=== PATIENT | male | born 1970 ===

== ENCOUNTER 2018-09-24 09:38 | Inpatient (IN) | payer OTHER ==
[2018-09-24 09:53] VITALS: BMI 26.6
[2018-09-24 10:43] LABS: BASO % 0.1 % (0.0-2.0); HEMOGLOBIN 15.5 g/dL (12.0-18.0); LYMPH # 1.2 K/uL (1.0-4.3); LYMPH % 8.6 % (20.0-40.0); MEAN CELL VOLUME 104.5 fl (80.0-94.0); MEAN CORPUSCULAR HEMOGLOBIN 35.1 pg (27.0-31.0); MEAN CORPUSCULAR HGB CONC 33.6 g/dL (33.0-37.0); MEAN PLATELET VOLUME 6.8 fl (7.2-11.7); MONO # 1.2 K/uL (0.0-0.8); MONO % 8.3 % (0.0-10.0); NEUT # 12.1 K/uL (1.8-7.0); PLATELET COUNT 190 K/uL (130-400); RED CELL DISTRIBUTION WIDTH 13.1 % (11.5-14.5); WHITE BLOOD COUNT 14.5 K/uL (4.8-10.8)
[2018-09-24 10:50] LABS: BLOOD UREA NITROGEN 21 mg/dl (9-20); CALCIUM 9.4 mg/dL (8.4-10.2); GFR NON-AFRICAN AMERICAN > 60
--- NOTE | 2018-09-24 11:55 | ED PDOC ---
HPI: Male Pain Time Seen by Provider: 09/24/18 10:15 Chief Complaint (Nursing): Male Genitourinary History Per: Patient History/Exam Limitations: no limitations Onset/Duration Of Symptoms: Hrs Current Symptoms Are (Timing): Still Present Severity: Severe Pain Scale Rating Of: 9 Quality Of Discomfort: Sharp, Burning Associated Symptoms: Nausea. denies: Fever, Chills Alleviating Factors: None Additional Complaint(s): 48 yo M with no PMHx presents with sudden on set left sided testicular pain. Pt states the pain came on suddenly this morning. Pt denies previous pain with urination, trauma, fever, vomiting, or other symptoms. PT denies having had this in the past. Pt described the pain as feeling like his scrotum is going to explode. PMD: Past Medical History Vital Signs: Last Vital Signs Temp 97.9 F 09/24/18 09:52 Pulse 98 H 09/24/18 09:52 Resp 16 09/24/18 09:52 BP 146/91 H 09/24/18 09:52 Pulse Ox 98 09/24/18 10:00 - Medical History PMH: No Chronic Diseases - Surgical History Surgical History: No Surg Hx - Family History Family History: States: Unknown Family Hx - Home Medications Home Medications: Ambulatory Orders Medication Instructions Recorded RX: Cholecalciferol [Vitamin D 1 tab PO DAILY 09/24/18 1000 IU] RX: Emtricitabine/Tenofov Alafenam 1 tab PO QPM 09/24/18 [Descovy 200-25 mg Tablet] RX: Ezetimibe [Zetia] 10 mg PO DAILY 09/24/18 RX: Milk Thistle Seed Extract 1 cap PO DAILY 09/24/18 [Milk Thistle] RX: Nevirapine [Nevirapine ER] 400 mg PO QPM 09/24/18 RX: Simvastatin [Zocor] 20 mg PO DAILY 09/24/18 Ciprofloxacin HCl [Cipro] 500 mg PO BID #20 tab 09/28/18 Ibuprofen [Motrin] 600 mg PO Q6 PRN #30 tab 09/28/18 - Allergies Allergies/Adverse Reactions: Allergies Allergy/AdvReac Type Severity Reaction Status Date / Time No Known Allergies Allergy Verified 09/24/18 10:00 Review of Systems Constitutional: Negative for: Fever, Chills Cardiovascular: Negative for: Chest Pain, Palpitations Respiratory: Negative for: Cough, Shortness of Breath Gastrointestinal: Positive for: Nausea. Negative for: Vomiting, Abdominal Pain, Diarrhea Genitourinary Male: Positive for: Scrotal Pain (left testicular pain). Negative for: Dysuria, Incontinence, Hematuria Skin: Negative for: Rash Neurological: Negative for: Weakness Psych: Negative for: Anxiety, Depression Physical Exam - Physical Exam Appears: Positive for: Uncomfortable (writhing in pain and screaming) Head Exam: Positive for: ATRAUMATIC, NORMAL INSPECTION Skin: Positive for: Normal Color, Warm, Dry Neck: Positive for: Normal Cardiovascular/Chest: Positive for: Regular Rate, Rhythm Respiratory: Positive for: Normal Breath Sounds. Negative for: Rales, Wheezing Gastrointestinal/Abdominal: Positive for: Normal Exam, Soft. Negative for: Tenderness Male Genital Exam: Positive for: epididymal tenderness (left sided), erythema, scrotum tenderness (L) (left scrotal swelling and tenderness on any palpation, lifting the testical. BL scrotal erythema.), other (Performed with RN Marco A mckenzie present.). Negative for: urethral discharge Extremity: Positive for: Normal ROM Neurologic/Psych: Positive for: Alert, market development analyst II-XII, Oriented - Laboratory Results Result Diagrams: 09/27/18 05:25 09/27/18 05:25 - ECG O2 Sat by Pulse Oximetry: 98 Medical Decision Making Medical Decision Makin yo M with scrotal swelling and pain, worse on the left side. Physical exam limited due to severe pain. Pain control. Scrotal US. Labs, UA, Uculture. -reassess pt 14:28 -After further discussion with patient, he states he's had HIV for x10 years. He [place] with Dr. [place] in the city. He takes medications daily, his CD4 count is in the 1400s with a viral load fluctuating between undetectable and approximately 60. -Patient is still unable to urinate, will place mcgraw catheter, IV consult and patient will be admitted. Disposition - Clinical Impression Clinical Impression: Urinary tract infection - Disposition Disposition Time: 14:28 Condition: FAIR
[2018-09-24 12:06] LABS: LYMPHOCYTE 11 % (20-50); MONOCYTE 10 % (0-10); NEUTROPHIL 76 % (42-75); PLATELET ESTIMATE NORMAL (NORMAL); REACTIVE LYMPHOCYTES 3 % (0-0); TOTAL CELLS COUNTED 100
--- NOTE | 2018-09-24 12:14 | US ---
Date of service: 09/24/2018 HISTORY: left testicular swelling and pain TECHNIQUE: Realtime sonography through the scrotum with color and doppler flow. COMPARISON: None Available. FINDINGS: RIGHT TESTICLE: Measures 4.5 x 3.3 x 2.2 cm. Normal echotexture and flow. Diffuse increased blood flow in the right testicle and right epididymis RIGHT EPIDIDYMIS: Epididymal head measures 1.9 x 1.3 x 1.2 cm. Grossly unremarkable appearance with normal flow. Diffuse increased blood flow in the right epididymis LEFT TESTICLE: Measures 4.5 x 3.4 x 3 cm. Normal echotexture and flow. LEFT EPIDIDYMIS: Epididymal head measures 2.5 x 1.5 x 1.7 cm. Grossly unremarkable appearance with normal flow. HYDROCELE: Small bilateral hydroceles seen for prominent on the left. VARICOCELE: None. OTHER FINDINGS: None. IMPRESSION: Bilateral enlargement of the testicles and epididymis more prominent on the left associated with diffuse hyperemia suggestive of orchitis epididymitis. Small bilateral hydroceles more prominent on the left.
[2018-09-24] MEDS ORDERED: Sodium Chloride 0.9% 1,000 ML IV STA (12:32)
[2018-09-24 12:39] LABS: URINE BACTERIA RARE (<OCC); URINE BILIRUBIN NEGATIVE (NEGATIVE); URINE BLOOD NEGATIVE (NEGATIVE); URINE CLARITY SLIGHTY-CLOUDY (Clear); URINE COLOR YELLOW (YELLOW); URINE GLUCOSE (UA) NEG (Normal); URINE LEUKOCYTE ESTERASE NEG Leu/uL (Negative); URINE PROTEIN NEGATIVE (NEGATIVE); URINE UROBILINOGEN 0.2-1.0 mg/dL (0.2-1.0)
[2018-09-24] MEDS ORDERED: cefTRIAXone 2 GM in Sodium Chloride 0.9% 100 ML IVPB STA (13:19)
[2018-09-24 14:16] LABS: VENOUS BLOOD GAS BASE EXCESS 3.3 mmol/L (0.0-2.0); VENOUS BLOOD GAS PCO2 30 mmHg (40-60); VENOUS BLOOD GAS PO2 34 mm/Hg (30-55); VENOUS BLOOD PH 7.53 (7.32-7.43)
[2018-09-24] MEDS: Morphine 4 MG/ML VIAL IVP STA ×3 (15:30→16:11)
--- NOTE | 2018-09-24 18:45 | CP.PCM.CON ---
History of Present Illness - History of Present Illness History of Present Illness: 48 yo M with no PMHx presents with sudden on set left sided testicular pain. Pt states the pain came on suddenly this morning. Pt denies previous pain with urination, trauma, fever, vomiting, or other symptoms. PT denies having had this in the past. Pt described the pain as feeling like his scrotum is going to explode. PMH HIV on Odefsey/Viramune Past Patient History - Past Social History Smoking Status: Never Smoked - CARDIAC Hx Cardiac Disorders: Yes (hld) Hx Hypercholesterolemia: Yes - PULMONARY Hx Respiratory Disorders: No - NEUROLOGICAL Hx Neurological Disorder: No - HEENT Hx HEENT Problems: No - RENAL Hx Chronic Kidney Disease: No - ENDOCRINE/METABOLIC Hx Endocrine Disorders: No - HEMATOLOGICAL/ONCOLOGICAL Hx Blood Disorders: Yes (hiv) Hx AIDS: No Hx Human Immunodeficiency Virus (HIV): Yes - INTEGUMENTARY Hx Dermatological Problems: No - MUSCULOSKELETAL/RHEUMATOLOGICAL Hx Musculoskeletal Disorders: No Hx Falls: No - GENITOURINARY/GYNECOLOGICAL Hx Genitourinary Disorders: Yes Hx Sexually Transmitted Disorders: Yes Other/Comment: Gonorrhea. Chlamydia. Syphilis - PSYCHIATRIC Hx Psychophysiologic Disorder: No Hx Substance Use: No - SURGICAL HISTORY Hx Surgeries: No Other/Comment: [place] tooth removal - ANESTHESIA Hx Anesthesia: Yes Hx Anesthesia Reactions: No Meds Allergies/Adverse Reactions: Allergies Allergy/AdvReac Type Severity Reaction Status Date / Time No Known Allergies Allergy Verified 09/24/18 10:00 - Medications Medications: Current Medications Acetaminophen (Tylenol 325mg Tab) 650 mg PO STAT PRN PRN Reason: Fever >100.4 F Last Admin: 09/24/18 15:47 Dose: 650 mg Atorvastatin Calcium (Lipitor) 10 mg PO HS [facility] Cholecalciferol (Vitamin D) 1,000 intlu PO DAILY [facility] Ezetimibe (Zetia) 10 mg PO DAILY [facility] Emtricitabine/Tenofovir (Truvada 200 Mg-300 Mg) 1 tab PO DAILY [facility]; Protocol Enoxaparin Sodium (Lovenox) 40 mg SC DAILY [facility]; Protocol Home Med (Emtricitabine/Tenofov Alafenam [Descovy 200-25 Mg Tablet]) 1 tab PO QPM [facility] Home Med (Milk Thistle Seed Extract [Milk Thistle]) 1 cap PO DAILY [facility] Home Med (Nevirapine [Nevirapine Er]) 400 mg PO QPM [facility] Levofloxacin/Dextrose (Levaquin 500mg) 500 mg in 100 mls @ 100 mls/hr IVPB DAILY [facility]; Protocol Ceftriaxone Sodium 2 gm/ (Sodium Chloride) 100 mls @ 100 mls/hr IVPB DAILY [facility]; Protocol Ketorolac Tromethamine (Toradol) 30 mg IVP Q6 PRN PRN Reason: Pain, moderate (4-7) Morphine Sulfate (Morphine) 2 mg IVP Q6 PRN PRN Reason: Pain, moderate (4-7) Morphine Sulfate (Morphine) 4 mg IVP Q6 PRN PRN Reason: Pain, severe (8-10) Nevirapine (Viramune) 200 mg PO BID [facility]; Protocol Results - Vital Signs Recent Vital Signs: Last Vital Signs Temp 99.9 F H 09/24/18 16:47 Pulse 101 H 09/24/18 16:37 Resp 17 09/24/18 16:51 BP 140/69 09/24/18 16:37 Pulse Ox 99 09/24/18 16:37 - Labs Result Diagrams: 09/24/18 10:30 09/24/18 10:30 Labs: Laboratory Results - last 24 hr 09/24/18 09/24/18 09/24/18 10:30 10:30 12:30 WBC 14.5 H RBC 4.40 Hgb 15.5 Hct 46.0 MCV 104.5 H MCH 35.1 H MCHC 33.6 RDW 13.1 Plt Count 190 MPV 6.8 L Neut % (Auto) 83.0 H Lymph % (Auto) 8.6 L Sac % (Auto) 8.3 Eos % (Auto) 0.0 Baso % (Auto) 0.1 Neut # (Auto) 12.1 H Lymph # (Auto) 1.2 Sac # (Auto) 1.2 H Eos # (Auto) 0.0 Baso # (Auto) 0.0 Neutrophils % (Manual) 76 H Lymphocytes % (Manual) 11 L Reactive Lymphs % 3 H Monocytes % (Manual) 10 Platelet Estimate Normal Macrocytosis (manual) Moderate pO2 VBG pH VBG pCO2 VBG HCO3 VBG Total CO2 VBG O2 Sat (Calc) VBG Base Excess VBG Potassium Glucose Lactate FiO2 Sodium 134 Potassium 4.2 Chloride 101 Carbon Dioxide 24 Anion Gap 13 BUN 21 H Creatinine 0.9 Est GFR ( Amer) > 60 Est GFR (Non-Af Amer) > 60 Random Glucose 116 H Calcium 9.4 Venous Blood Potassium Urine Color Yellow Urine Clarity Slighty-cloudy Urine pH 8.0 Ur Specific [place] 1.019 Urine Protein Negative Urine Glucose (UA) Neg Urine Ketones Negative Urine Blood Negative Urine Nitrate Negative Urine Bilirubin Negative Urine Urobilinogen 0.2-1.0 Ur Leukocyte Esterase Neg Urine RBC (Auto) 1 Urine Microscopic WBC 1 Urine Bacteria Rare 09/24/18 13:49 WBC RBC Hgb Hct MCV MCH MCHC RDW Plt Count MPV Neut % (Auto) Lymph % (Auto) Sac % (Auto) Eos % (Auto) Baso % (Auto) Neut # (Auto) Lymph # (Auto) Sac # (Auto) Eos # (Auto) Baso # (Auto) Neutrophils % (Manual) Lymphocytes % (Manual) Reactive Lymphs % Monocytes % (Manual) Platelet Estimate Macrocytosis (manual) pO2 34 VBG pH 7.53 H VBG pCO2 30 L VBG HCO3 26.6 VBG Total CO2 26.0 VBG O2 Sat (Calc) 71.7 H VBG Base Excess 3.3 H VBG Potassium 3.8 Glucose 114 H Lactate 1.9 FiO2 21.0 Sodium 132.0 Potassium Chloride 99.0 Carbon Dioxide Anion Gap BUN Creatinine Est GFR ( Amer) Est GFR (Non-Af Amer) Random Glucose Calcium Venous Blood Potassium 3.8 Urine Color Urine Clarity Urine pH Ur Specific [place] Urine Protein Urine Glucose (UA) Urine Ketones Urine Blood Urine Nitrate Urine Bilirubin Urine Urobilinogen Ur Leukocyte Esterase Urine RBC (Auto) Urine Microscopic WBC Urine Bacteria
--- NOTE | 2018-09-24 18:49 | CP.PCM.HP ---
History of Present Illness - History of Present Illness History of Present Illness: 48 yo M with PMHx of HIV, chronic Hep C? and HLD presents to the ED c/o pain of sudden onset in left testicle. Pt states that the pain started at night while he was sleeping, radiated to his back, constant, worsening over time, no nidhi viating factors. He went to bathroom and noted some difficulty to urinate. In the morning he noted his scrotum swollen, red and warm. He reports similar episode around 10 years ago. He denies burning or dysuria, frequency, trauma, penile discharge, fever, nausea, vomiting, abdominal pain or change in BM. PMH: PMH: HIV since 12 years ago, Hep C, HLD Meds: as bellow NKDA PSH: denies FMH: denies SH: denies etoh, tobacco or ilicit drugs Lives with male partner. Present on Admission - Present on Admission Any Indicators Present on Admission: No Review of Systems - Review of Systems All systems: reviewed and no additional remarkable complaints except (HPI) Past Patient History - Past Social History Smoking Status: Never Smoked - CARDIAC Hx Cardiac Disorders: Yes (hld) Hx Hypercholesterolemia: Yes - PULMONARY Hx Respiratory Disorders: No - NEUROLOGICAL Hx Neurological Disorder: No - HEENT Hx HEENT Problems: No - RENAL Hx Chronic Kidney Disease: No - ENDOCRINE/METABOLIC Hx Endocrine Disorders: No - HEMATOLOGICAL/ONCOLOGICAL Hx Blood Disorders: Yes (hiv) Hx AIDS: No Hx Human Immunodeficiency Virus (HIV): Yes - INTEGUMENTARY Hx Dermatological Problems: No - MUSCULOSKELETAL/RHEUMATOLOGICAL Hx Musculoskeletal Disorders: No Hx Falls: No - GENITOURINARY/GYNECOLOGICAL Hx Genitourinary Disorders: Yes Hx Sexually Transmitted Disorders: Yes Other/Comment: Gonorrhea. Chlamydia. Syphilis - PSYCHIATRIC Hx Psychophysiologic Disorder: No Hx Substance Use: No - SURGICAL HISTORY Hx Surgeries: No Other/Comment: [place] tooth removal - ANESTHESIA Hx Anesthesia: Yes Hx Anesthesia Reactions: No Meds Allergies/Adverse Reactions: Allergies Allergy/AdvReac Type Severity Reaction Status Date / Time No Known Allergies Allergy Verified 09/24/18 10:00 Physical Exam - Constitutional Appears: In Acute Distress (due to pain) - Head Exam Head Exam: NORMAL INSPECTION - Eye Exam Eye Exam: EOMI - Respiratory Exam Respiratory Exam: Clear to Auscultation Bilateral, NORMAL BREATHING PATTERN - Cardiovascular Exam Cardiovascular Exam: REGULAR RHYTHM, +S1, +S2. absent: Tachycardia - GI/Abdominal Exam GI & Abdominal Exam: Normal Bowel Sounds, Soft. absent: Distended, Tenderness - Exam Exam: Scrotal Swelling (L, erythema), Testicular Tenderness. absent: Uretheral Discharge - Extremities Exam Extremities exam: Negative for: pedal edema - Back Exam Back exam: absent: CVA tenderness (L), CVA tenderness (R) - Neurological Exam Neurological exam: Alert, CN II-XII Intact, Oriented x3 - Skin Skin Exam: Dry, Warm - Additional Findings Additional findings: Patient was found febrile during physical exam, T 101.3 F Results - Vital Signs Recent Vital Signs: Last Vital Signs Temp 99.9 F H 09/24/18 16:47 Pulse 101 H 09/24/18 16:37 Resp 17 09/24/18 16:51 BP 140/69 09/24/18 16:37 Pulse Ox 99 09/24/18 16:37 - Labs Result Diagrams: 09/24/18 10:30 09/24/18 10:30 Labs: Laboratory Results - last 24 hr 09/24/18 09/24/18 09/24/18 10:30 10:30 12:30 WBC 14.5 H RBC 4.40 Hgb 15.5 Hct 46.0 MCV 104.5 H MCH 35.1 H MCHC 33.6 RDW 13.1 Plt Count 190 MPV 6.8 L Neut % (Auto) 83.0 H Lymph % (Auto) 8.6 L [place] % (Auto) 8.3 Eos % (Auto) 0.0 Baso % (Auto) 0.1 Neut # (Auto) 12.1 H Lymph # (Auto) 1.2 [place] # (Auto) 1.2 H Eos # (Auto) 0.0 Baso # (Auto) 0.0 Neutrophils % (Manual) 76 H Lymphocytes % (Manual) 11 L Reactive Lymphs % 3 H Monocytes % (Manual) 10 Platelet Estimate Normal Macrocytosis (manual) Moderate pO2 VBG pH VBG pCO2 VBG HCO3 VBG Total CO2 VBG O2 Sat (Calc) VBG Base Excess VBG Potassium Glucose Lactate FiO2 Sodium 134 Potassium 4.2 Chloride 101 Carbon Dioxide 24 Anion Gap 13 BUN 21 H Creatinine 0.9 Est GFR ( Amer) > 60 Est GFR (Non-Af Amer) > 60 Random Glucose 116 H Calcium 9.4 Venous Blood Potassium Urine Color Yellow Urine Clarity Slighty-cloudy Urine pH 8.0 Ur Specific [place] 1.019 Urine Protein Negative Urine Glucose (UA) Neg Urine Ketones Negative Urine Blood Negative Urine Nitrate Negative Urine Bilirubin Negative Urine Urobilinogen 0.2-1.0 Ur Leukocyte Esterase Neg Urine RBC (Auto) 1 Urine Microscopic WBC 1 Urine Bacteria Rare 09/24/18 13:49 WBC RBC Hgb Hct MCV MCH MCHC RDW Plt Count MPV Neut % (Auto) Lymph % (Auto) [place] % (Auto) Eos % (Auto) Baso % (Auto) Neut # (Auto) Lymph # (Auto) [place] # (Auto) Eos # (Auto) Baso # (Auto) Neutrophils % (Manual) Lymphocytes % (Manual) Reactive Lymphs % Monocytes % (Manual) Platelet Estimate Macrocytosis (manual) pO2 34 VBG pH 7.53 H VBG pCO2 30 L VBG HCO3 26.6 VBG Total CO2 26.0 VBG O2 Sat (Calc) 71.7 H VBG Base Excess 3.3 H VBG Potassium 3.8 Glucose 114 H Lactate 1.9 FiO2 21.0 Sodium 132.0 Potassium Chloride 99.0 Carbon Dioxide Anion Gap BUN Creatinine Est GFR ( Amer) Est GFR (Non-Af Amer) Random Glucose Calcium Venous Blood Potassium 3.8 Urine Color Urine Clarity Urine pH Ur Specific [place] Urine Protein Urine Glucose (UA) Urine Ketones Urine Blood Urine Nitrate Urine Bilirubin Urine Urobilinogen Ur Leukocyte Esterase Urine RBC (Auto) Urine Microscopic WBC Urine Bacteria Assessment & Plan - Assessment and Plan (Free Text) Assessment: 48 yo male patient admitted with epididymitis. Patient has h/o HIV adherent with medications and hepatitis C per patient. Plan: - VSS, febrile - leukocytosis, lactate 1.9 - Testicular US: b/l scrotal swelling and epididymitis more prominent in L, hyperemia suggesting orchitis, b/l hydrocele, no evidence of testicular torsion. - ID consulted - Urology consulted - IV abx - pain management - f/u labs in am - f/u cultures - home meds resumed - rest of plan as ordered Case discussed with Dr Whipple.
[2018-09-24] MEDS ORDERED: Morphine 4 MG/ML VIAL IVP PRN ×2 (21:30)
[2018-09-25 06:06] LABS: BASO % 0.2 % (0.0-2.0); EOS % 0.1 % (0.0-4.0); HEMOGLOBIN 14.5 g/dL (12.0-18.0); LYMPH # 2.3 K/uL (1.0-4.3); MEAN CELL VOLUME 104.6 fl (80.0-94.0); MEAN CORPUSCULAR HEMOGLOBIN 34.6 pg (27.0-31.0); MEAN CORPUSCULAR HGB CONC 33.1 g/dL (33.0-37.0); MEAN PLATELET VOLUME 6.8 fl (7.2-11.7); MONO # 1.4 K/uL (0.0-0.8); MONO % 7.4 % (0.0-10.0); NEUT # 15.7 K/uL (1.8-7.0); NEUT % 80.3 % (50.0-75.0); RBC 4.19 Mil/uL (4.40-5.90); RED CELL DISTRIBUTION WIDTH 13.1 % (11.5-14.5); WHITE BLOOD COUNT 19.5 K/uL (4.8-10.8)
[2018-09-25 06:19] LABS: ALB/GLOB RATIO 1.1 (1.0-2.1); ALBUMIN 3.8 g/dL (3.5-5.0); ALT/SGPT 41 U/L (21-72); AST/SGOT 28 U/L (17-59); BLOOD UREA NITROGEN 21 mg/dl (9-20); GFR NON-AFRICAN AMERICAN > 60
[2018-09-25] MEDS: levoFLOXacin 500 mg in D5W 500 MG/100 ML BAG IVPB SCH (08:51)
[2018-09-25] MEDS: Enoxaparin 40 mg Syringe SC SCH (08:52)
[2018-09-25] MEDS: Cholecalciferol 1,000 INTLU TAB PO SCH ×2 (08:55→09:40)
[2018-09-25] MEDS ORDERED: MILK THISTLE SEED EXTRACT PO SCH (09:00)
[2018-09-25] MEDS ORDERED: cefTRIAXone 1,000 MG in PED IV SYRINGE 1 SYR IVPB SCH (09:00)
[2018-09-25] MEDS ORDERED: cefTRIAXone 2 GM in Sodium Chloride 0.9% 100 ML IVPB SCH (09:00)
[2018-09-25] MEDS ORDERED: Emtricitabine-Tenofovir 200 mg-300 mg Tab PO SCH (09:00)
--- NOTE | 2018-09-25 13:26 | CP.PCM.PN ---
Subjective - Date & Time of Evaluation Date of Evaluation: 09/25/18 Time of Evaluation: 09:00 - Subjective Subjective: still febrile with high WBC cultures neg thus far Objective - Vital Signs/Intake and Output Vital Signs (last 24 hours): Temp Pulse Resp BP Pulse Ox 98.1 F 95 H 20 105/61 95 09/25/18 09:00 09/25/18 07:58 09/25/18 07:58 09/25/18 07:58 09/25/18 07:58 - Medications Medications: Current Medications Acetaminophen (Tylenol 325mg Tab) 650 mg PO STAT PRN PRN Reason: Fever >100.4 F Last Admin: 09/24/18 15:47 Dose: 650 mg Atorvastatin Calcium (Lipitor) 10 mg PO HS [facility] Last Admin: 09/24/18 21:35 Dose: 10 mg Cholecalciferol (Vitamin D) 1,000 intlu PO DAILY [facility] Last Admin: 09/25/18 09:40 Dose: Not Given Ezetimibe (Zetia) 10 mg PO DAILY [facility] Last Admin: 09/25/18 09:30 Dose: Not Given Emtricitabine/Tenofovir (Truvada 200 Mg-300 Mg) 1 tab PO DAILY [facility]; Protocol Last Admin: 09/25/18 09:39 Dose: Not Given Enoxaparin Sodium (Lovenox) 40 mg SC DAILY [facility]; Protocol Last Admin: 09/25/18 08:52 Dose: 40 mg Home Med (Emtricitabine/Tenofov Alafenam [Descovy 200-25 Mg Tablet]) 1 tab PO QPM [facility] Home Med (Milk Thistle Seed Extract [Milk Thistle]) 1 cap PO DAILY [facility] Home Med (Nevirapine [Nevirapine Er]) 400 mg PO QPM [facility] Levofloxacin/Dextrose (Levaquin 500mg) 500 mg in 100 mls @ 100 mls/hr IVPB DAILY [facility]; Protocol Last Admin: 09/25/18 08:51 Dose: 100 mls/hr [place] 1 gm/ Sodium (Chloride) 100 mls @ 100 mls/hr IVPB Q8 [facility]; Protocol Ketorolac Tromethamine (Toradol) 30 mg IVP Q6 PRN PRN Reason: Pain, moderate (4-7) Morphine Sulfate (Morphine) 2 mg IVP Q6 PRN PRN Reason: Pain, moderate (4-7) Last Admin: 09/24/18 21:34 Dose: 2 mg Morphine Sulfate (Morphine) 4 mg IVP Q6 PRN PRN Reason: Pain, severe (8-10) Nevirapine (Viramune) 200 mg PO BID [facility]; Protocol Last Admin: 09/25/18 09:40 Dose: Not Given - Labs Labs: 09/25/18 05:45 09/25/18 05:45 - Constitutional Appears: Non-toxic, Chronically Ill - Head Exam Head Exam: NORMOCEPHALIC - Eye Exam Eye Exam: absent: Scleral icterus - ENT Exam ENT Exam: Mucous Membranes Dry - Neck Exam Neck Exam: absent: Lymphadenopathy - Respiratory Exam Respiratory Exam: Decreased Breath Sounds - Cardiovascular Exam Cardiovascular Exam: REGULAR RHYTHM - GI/Abdominal Exam GI & Abdominal Exam: Distended, Soft - Rectal Exam Rectal Exam: Deferred - Exam Exam: Scrotal Swelling - Back Exam Back Exam: absent: CVA tenderness (L), CVA tenderness (R) - Neurological Exam Neurological Exam: Alert, Awake, CN II-XII Intact, Oriented x3 - Psychiatric Exam Psychiatric exam: Depressed - Skin Skin Exam: Dry Assessment and Plan (1) Acute epididymitis Status: Acute (2) Orchitis and epididymitis Status: Acute (3) HIV (human immunodeficiency virus infection) Status: Acute - Assessment and Plan (Free Text) Assessment: will add Merrem consider eval
[2018-09-25 13:34] LABS: HEPATITIS B SURFACE AG Negative (NEGATIVE)
[2018-09-25 13:41] LABS: HEPATITIS A IGM NEGATIVE (NEGATIVE); HEPATITIS B CORE AB NEGATIVE (NEGATIVE)
[2018-09-25 15:00] LABS: HEPATITIS C ANTIBODY REACTIVE (NEGATIVE)
[2018-09-25] MEDS: Meropenem 1 GM in Sodium Chloride 0.9% 100 ML IVPB SCH (16:43)
[2018-09-25] MEDS: Patient's Own Med (Emtricitabine/Tenofov Alafenam [Descovy 200-25 Mg Tablet] 1 TAB) PO SCH (17:58)
[2018-09-25] MEDS: NEVIRAPINE 400 MG PO SCH (17:59)
[2018-09-26] MEDS: Meropenem 1 GM in Sodium Chloride 0.9% 100 ML IVPB SCH ×3 (00:12→17:48)
[2018-09-26] MEDS: levoFLOXacin 500 mg in D5W 500 MG/100 ML BAG IVPB SCH (08:33)
[2018-09-26] MEDS: Cholecalciferol 1,000 INTLU TAB PO SCH ×2 (08:34→08:44)
[2018-09-26] MEDS: Enoxaparin 40 mg Syringe SC SCH (08:34)
[2018-09-26 11:49] LABS: HEMOGLOBIN 13.8 g/dL (12.0-18.0); MEAN CELL VOLUME 105.5 fl (80.0-94.0); MEAN CORPUSCULAR HEMOGLOBIN 36.9 pg (27.0-31.0); RBC 3.74 Mil/uL (4.40-5.90); RED CELL DISTRIBUTION WIDTH 13.4 % (11.5-14.5); WHITE BLOOD COUNT 12.2 K/uL (4.8-10.8)
[2018-09-26 12:20] LABS: ALBUMIN 3.5 g/dL (3.5-5.0); ALT/SGPT 38 U/L (21-72); AST/SGOT 20 U/L (17-59); BLOOD UREA NITROGEN 17 mg/dl (9-20); CALCIUM 8.6 mg/dL (8.4-10.2); GFR NON-AFRICAN AMERICAN > 60
[2018-09-26 18:05] LABS: % CD4 (T HELPER CELL) 23 Percent (30-61); % CD8 (SUPPRESSOR T CELL) 44 Percent (12-42); ABSOLUTE CD4 CELLS 647 Cells/mcL (490-1740); ABSOLUTE CD8 CELLS 1222 Cells/mcL (180-1170); ABSOLUTE LYMPHOCYTES 2782 Cells/mcL (850-3900); HELPER/SUPPRESSOR RATIO 0.53 Ratio (0.86-5.00)
[2018-09-26] MEDS: Patient's Own Med (Emtricitabine/Tenofov Alafenam [Descovy 200-25 Mg Tablet] 1 TAB) PO SCH (18:22)
[2018-09-26] MEDS: NEVIRAPINE 400 MG PO SCH (18:23)
[2018-09-26] MEDS: Docusate-Senna 50 mg-8.6 mg Tab PO SCH (21:23)
[2018-09-27] MEDS: Meropenem 1 GM in Sodium Chloride 0.9% 100 ML IVPB SCH ×2 (00:03→09:00)
[2018-09-27 07:14] LABS: MEAN CELL VOLUME 104.2 fl (80.0-94.0); MEAN CORPUSCULAR HEMOGLOBIN 35.4 pg (27.0-31.0); RBC 3.97 Mil/uL (4.40-5.90); RED CELL DISTRIBUTION WIDTH 13.1 % (11.5-14.5); WHITE BLOOD COUNT 9.4 K/uL (4.8-10.8)
[2018-09-27 07:36] LABS: ALBUMIN 3.6 g/dL (3.5-5.0); ALT/SGPT 40 U/L (21-72); AST/SGOT 26 U/L (17-59); BLOOD UREA NITROGEN 16 mg/dl (9-20); CALCIUM 8.6 mg/dL (8.4-10.2); GFR NON-AFRICAN AMERICAN > 60
[2018-09-27 08:13] VITALS: RESP 20
[2018-09-27] MEDS: levoFLOXacin 500 mg in D5W 500 MG/100 ML BAG IVPB SCH (08:59)
[2018-09-27] MEDS: Cholecalciferol 1,000 INTLU TAB PO SCH (09:01)
[2018-09-27] MEDS: Enoxaparin 40 mg Syringe SC SCH (09:13)
--- NOTE | 2018-09-27 13:47 | CP.PCM.PN ---
Subjective - Date & Time of Evaluation Date of Evaluation: 09/27/18 Time of Evaluation: 09:00 - Subjective Subjective: less pain and swelling no fever CD4 647 IV antibiotics renewed await eval Objective - Vital Signs/Intake and Output Vital Signs (last 24 hours): Temp Pulse Resp BP Pulse Ox 98.1 F 78 20 111/72 98 09/27/18 08:12 09/27/18 08:12 09/27/18 08:12 09/27/18 08:12 09/27/18 08:12 - Medications Medications: Current Medications Acetaminophen (Tylenol 325mg Tab) 650 mg PO STAT PRN PRN Reason: Fever >100.4 F Last Admin: 09/25/18 16:44 Dose: 650 mg Atorvastatin Calcium (Lipitor) 10 mg PO HS [facility] Last Admin: 09/26/18 21:23 Dose: Not Given Cholecalciferol (Vitamin D) 1,000 intlu PO DAILY [facility] Last Admin: 09/27/18 09:01 Dose: Not Given Diphenhydramine HCl (Benadryl) 50 mg PO HS PRN PRN Reason: Sleep Last Admin: 09/26/18 22:49 Dose: 50 mg Docusate Sodium (Colace) 100 mg PO BID [facility] Last Admin: 09/27/18 08:59 Dose: Not Given Ezetimibe (Zetia) 10 mg PO DAILY [facility] Last Admin: 09/27/18 09:01 Dose: Not Given Enoxaparin Sodium (Lovenox) 40 mg SC DAILY [facility]; Protocol Last Admin: 09/27/18 09:13 Dose: Not Given Home Med (Emtricitabine/Tenofov Alafenam [Descovy 200-25 Mg Tablet]) 1 tab PO QPM [facility] Last Admin: 09/26/18 18:22 Dose: 1 tab Home Med (Milk Thistle Seed Extract [Milk Thistle]) 1 cap PO DAILY [facility] Home Med (Nevirapine [Nevirapine Er]) 400 mg PO QPM [facility] Last Admin: 09/26/18 18:23 Dose: 400 mg Ciprofloxacin (Cipro 400mg/200ml Dsw) 400 mg in 200 mls @ 200 mls/hr IVPB Q12 [facility]; Protocol Ibuprofen (Motrin Tab) 600 mg PO Q8 [facility] Ketorolac Tromethamine (Toradol) 30 mg IVP Q6 PRN PRN Reason: Pain, moderate (4-7) Morphine Sulfate (Morphine) 2 mg IVP Q6 PRN PRN Reason: Pain, moderate (4-7) Last Admin: 09/24/18 21:34 Dose: 2 mg Morphine Sulfate (Morphine) 4 mg IVP Q6 PRN PRN Reason: Pain, severe (8-10) Senna/Docusate Sodium (Senokot S 50 Mg-8.6 Mg) 1 tab PO HS [facility] Last Admin: 09/26/18 21:23 Dose: Not Given - Labs Labs: 09/27/18 05:25 09/27/18 05:25 - Constitutional Appears: Non-toxic, Chronically Ill - Head Exam Head Exam: NORMOCEPHALIC - Eye Exam Eye Exam: absent: Scleral icterus - ENT Exam ENT Exam: Mucous Membranes Dry - Neck Exam Neck Exam: absent: Lymphadenopathy - Respiratory Exam Respiratory Exam: Decreased Breath Sounds - Cardiovascular Exam Cardiovascular Exam: REGULAR RHYTHM - GI/Abdominal Exam GI & Abdominal Exam: Distended, Soft - Rectal Exam Rectal Exam: Deferred - Exam Exam: Scrotal Swelling, Testicular Tenderness. absent: NORMAL INSPECTION - Extremities Exam Extremities Exam: absent: Pedal Edema - Back Exam Back Exam: absent: CVA tenderness (L), CVA tenderness (R) - Neurological Exam Neurological Exam: Alert, Awake, CN II-XII Intact, Oriented x3 - Psychiatric Exam Psychiatric exam: Normal Mood - Skin Skin Exam: Dry Assessment and Plan (1) Acute epididymitis Status: Acute (2) Orchitis and epididymitis Status: Acute (3) HIV (human immunodeficiency virus infection) Status: Acute - Assessment and Plan (Free Text) Assessment: HIV/HCV coinfection followed as out pt by ID Improving on IV antibiotics- all cultures neg Cont PO Cipro for 7-10 days more with follow up
[2018-09-27 16:16] VITALS: TEMP 97.9
[2018-09-27] MEDS: Ciprofloxacin 400mg/200ml D5W 400 MG/200 ML BAG IVPB SCH ×2 (16:29→20:48)
[2018-09-27] MEDS: NEVIRAPINE 400 MG PO SCH (18:00)
[2018-09-27] MEDS: Patient's Own Med (Emtricitabine/Tenofov Alafenam [Descovy 200-25 Mg Tablet] 1 TAB) PO SCH (18:00)
[2018-09-27] MEDS: Docusate-Senna 50 mg-8.6 mg Tab PO SCH (22:30)
[2018-09-28 08:50] VITALS: BP 142/94; PULSE 80
[2018-09-28] MEDS: Ciprofloxacin 400mg/200ml D5W 400 MG/200 ML BAG IVPB SCH (09:33)
[2018-09-28] MEDS: Cholecalciferol 1,000 INTLU TAB PO SCH (09:36)
[2018-09-28] MEDS: Enoxaparin 40 mg Syringe SC SCH (09:36)
[2018-10-01 12:42] VITALS: O2SAT 98
--- NOTE | 2018-10-04 21:59 | PQF ---
PROVIDER RESPONSE TEXT: Hiv asymptomatic REVIEWER QUERY TEXT: HIV Clarification and Associated Conditions HIV (Human immunodeficiency virus) is documented in the medical record. Please specify the type Such as: -- Acquired immune deficiency syndrome [AIDS] -- VFVA-fimbkmr-dbsiept complex [ARC] -- Symptomatic -- Asymptomatic -- With current or previous HIV-related condition (please specify related condition) -- Exposure to HIV -- Inconclusive serologic evidence of HIV -- Other, please specify Also please include any associated conditions, if applicable. The patient's Clinical Indicators include: XX Query created by: Li Dodge on 09/29/2018 12:08 PM Electronically signed by: Vlad Whipple 10/04/2018 9:55 PM
--- NOTE | 2018-10-04 22:05 | CP.PCM.PN ---
Subjective - Date & Time of Evaluation Date of Evaluation: 09/25/18 Time of Evaluation: 11:00 - Subjective Subjective: patient seen and examined at bedside. no acute events overnight. no complaints offered at this time, pain continues though controlled denies cp/sob/fever/chills. all available diagnostic data reviewed Objective Vital Signs Stable - Constitutional Appears: Non-toxic, No Acute Distress - Head Exam Head Exam: NORMAL INSPECTION - Eye Exam Eye Exam: Normal appearance - Respiratory Exam Respiratory Exam: NORMAL BREATHING PATTERN - Cardiovascular Exam Cardiovascular Exam: +S1, +S2 - GI/Abdominal Exam GI & Abdominal Exam: Soft - Neurological Exam Neurological Exam: Alert, Awake, Oriented x3 - Psychiatric Exam Psychiatric exam: Normal Affect, Normal Mood - Skin Skin Exam: Normal Color, Warm Assessment and Plan monitor vitals monitor labs Cont meds Cont tx consultants appreciated input rest of plan as ordered
--- NOTE | 2018-10-04 22:08 | CP.PCM.PN ---
Subjective - Date & Time of Evaluation Date of Evaluation: 09/26/18 Time of Evaluation: 11:00 - Subjective Subjective: patient seen and examined at bedside. no acute events overnight. no complaints offered at this time, pain/swelling continues though controlled denies cp/sob/fever/chills. all available diagnostic data reviewed Objective Vital Signs Stable - Constitutional Appears: Non-toxic, No Acute Distress - Head Exam Head Exam: NORMAL INSPECTION - Eye Exam Eye Exam: Normal appearance - Respiratory Exam Respiratory Exam: NORMAL BREATHING PATTERN - Cardiovascular Exam Cardiovascular Exam: +S1, +S2 - GI/Abdominal Exam GI & Abdominal Exam: Soft - Neurological Exam Neurological Exam: Alert, Awake, Oriented x3 - Psychiatric Exam Psychiatric exam: Normal Affect, Normal Mood - Skin Skin Exam: Normal Color, Warm Assessment and Plan monitor vitals monitor labs Cont meds Cont tx consultants appreciated input rest of plan as ordered
--- NOTE | 2018-10-04 22:12 | CP.PCM.DIS ---
Provider - Provider Date of Admission: 09/24/18 14:37 Attending physician: Vlad Whipple MD Consults: 09/24/18 14:23 Urology Consult Stat Comment: Consulting Provider: Denise Escobar Consulting Physician: Denise Escobar Reason for Consult: epididymitis 09/24/18 14:36 Infectious Disease Consult Stat Comment: Consulting Provider: Brendon Mora Consulting Physician: Brendon Mora Reason for Consult: HIV+ with epididymitis/orchitis. Sepsis Time Spent in preparation of Discharge (in minutes): 30 Diagnosis - Discharge Diagnosis (1) Acute epididymitis Status: Acute (2) HIV (human immunodeficiency virus infection) Status: Chronic (3) Hepatitis C antibody positive in blood Status: Chronic Hospital Course - Lab Results Lab Results: Micro Results 09/24/18 13:56 Blood-Venous Blood Culture - Final NO GROWTH AFTER 5 DAYS 09/24/18 13:56 Blood-Venous Gram Stain - Final TEST NOT PERFORMED 09/24/18 15:53 Urine,Clean Catch Urine Culture - Final No Growth (<1,000 CFU/ML) Most Recent Lab Values WBC 9.4 K/uL (4.8-10.8) 09/27/18 05:25 RBC 3.97 Mil/uL (4.40-5.90) L 09/27/18 05:25 Hgb 14.0 g/dL (12.0-18.0) 09/27/18 05:25 Hct 41.4 % (35.0-51.0) 09/27/18 05:25 MCV 104.2 fl (80.0-94.0) H 09/27/18 05:25 MCH 35.4 pg (27.0-31.0) H 09/27/18 05:25 MCHC 34.0 g/dL (33.0-37.0) 09/27/18 05:25 RDW 13.1 % (11.5-14.5) 09/27/18 05:25 Plt Count 157 K/uL (130-400) 09/27/18 05:25 MPV 6.8 fl (7.2-11.7) L 09/25/18 05:45 Neut % (Auto) 80.3 % (50.0-75.0) H 09/25/18 05:45 Lymph % (Auto) 12.0 % (20.0-40.0) L 09/25/18 05:45 Blanco % (Auto) 7.4 % (0.0-10.0) 09/25/18 05:45 Eos % (Auto) 0.1 % (0.0-4.0) 09/25/18 05:45 Baso % (Auto) 0.2 % (0.0-2.0) 09/25/18 05:45 Neut # (Auto) 15.7 K/uL (1.8-7.0) H 09/25/18 05:45 Lymph # (Auto) 2.3 K/uL (1.0-4.3) 09/25/18 05:45 [place] # (Auto) 1.4 K/uL (0.0-0.8) H 09/25/18 05:45 Eos # (Auto) 0.0 K/uL (0.0-0.7) 09/25/18 05:45 Baso # (Auto) 0.0 K/uL (0.0-0.2) 09/25/18 05:45 Neutrophils % (Manual) 76 % (42-75) H 09/24/18 10:30 Lymphocytes % (Manual) 11 % (20-50) L 09/24/18 10:30 Reactive Lymphs % 3 % (0-0) H 09/24/18 10:30 Monocytes % (Manual) 10 % (0-10) 09/24/18 10:30 Platelet Estimate Normal (NORMAL) 09/24/18 10:30 Macrocytosis (manual) Moderate 09/24/18 10:30 pO2 34 mm/Hg (30-55) 09/24/18 13:49 VBG pH 7.53 (7.32-7.43) H 09/24/18 13:49 VBG pCO2 30 mmHg (40-60) L 09/24/18 13:49 VBG HCO3 26.6 mmol/L 09/24/18 13:49 VBG Total CO2 26.0 mmol/L (22-28) 09/24/18 13:49 VBG O2 Sat (Calc) 71.7 % (40-65) H 09/24/18 13:49 VBG Base Excess 3.3 mmol/L (0.0-2.0) H 09/24/18 13:49 VBG Potassium 3.8 mmol/L (3.6-5.2) 09/24/18 13:49 Sodium 132.0 mmol/L (132-148) 09/24/18 13:49 Chloride 99.0 mmol/L (98-107) 09/24/18 13:49 Glucose 114 mg/dL (75-110) H 09/24/18 13:49 Lactate 1.9 mmol/L (0.7-2.1) 09/24/18 13:49 FiO2 21.0 % 09/24/18 13:49 Sodium 138 mmol/l (132-148) 09/27/18 05:25 Potassium 3.8 MMOL/L (3.6-5.0) 09/27/18 05:25 Chloride 102 mmol/L (98-107) 09/27/18 05:25 Carbon Dioxide 25 mmol/L (22-30) 09/27/18 05:25 Anion Gap 15 (10-20) 09/27/18 05:25 BUN 16 mg/dl (9-20) 09/27/18 05:25 Creatinine 0.9 mg/dl (0.8-1.5) 09/27/18 05:25 Est GFR ( Amer) > 60 09/27/18 05:25 Est GFR (Non-Af Amer) > 60 09/27/18 05:25 Random Glucose 98 mg/dL (75-110) 09/27/18 05:25 Calcium 8.6 mg/dL (8.4-10.2) 09/27/18 05:25 Total Bilirubin 0.5 mg/dl (0.2-1.3) 09/27/18 05:25 AST 26 U/L (17-59) 09/27/18 05:25 ALT 40 U/L (21-72) 09/27/18 05:25 Alkaline Phosphatase 69 U/L (38-126) 09/27/18 05:25 Total Protein 7.1 G/DL (6.3-8.2) 09/27/18 05:25 Albumin 3.6 g/dL (3.5-5.0) 09/27/18 05:25 Globulin 3.6 gm/dL (2.2-3.9) 09/27/18 05:25 Albumin/Globulin Ratio 1.0 (1.0-2.1) 09/27/18 05:25 Venous Blood Potassium 3.8 mmol/L (3.6-5.2) 09/24/18 13:49 Urine Color Yellow (YELLOW) 09/24/18 12:30 Urine Clarity Slighty-cloudy (Clear) 09/24/18 12:30 Urine pH 8.0 (5.0-8.0) 09/24/18 12:30 Ur Specific [place] 1.019 (1.003-1.030) 09/24/18 12:30 Urine Protein Negative mg/dL (NEGATIVE) 09/24/18 12:30 Urine Glucose (UA) Neg mg/dL (Normal) 09/24/18 12:30 Urine Ketones Negative mg/dL (NEGATIVE) 09/24/18 12:30 Urine Blood Negative (NEGATIVE) 09/24/18 12:30 Urine Nitrate Negative (NEGATIVE) 09/24/18 12:30 Urine Bilirubin Negative (NEGATIVE) 09/24/18 12:30 Urine Urobilinogen 0.2-1.0 mg/dL (0.2-1.0) 09/24/18 12:30 Ur Leukocyte Esterase Neg Manjinder/uL (Negative) 09/24/18 12:30 Urine RBC (Auto) 1 /hpf (0-3) 09/24/18 12:30 Urine Microscopic WBC 1 /hpf (0-5) 09/24/18 12:30 Urine Bacteria Rare (<OCC) 09/24/18 12:30 Absolute Lymphs (Flow) 2782 Cells/mcL (850-3900) 09/25/18 05:45 % CD4 Cells 23 Percent (30-61) L 09/25/18 05:45 Absolute CD4 Count 647 Cells/mcL (490-1740) 09/25/18 05:45 T-Help/Suppress Ratio 0.53 Ratio (0.86-5.00) L 09/25/18 05:45 % CD8 Cells 44 Percent (12-42) H 09/25/18 05:45 Absolute CD8 Count 1222 Cells/mcL (180-1170) H 09/25/18 05:45 C.trachomatis RNA (TMA) Not detected (Not Detected) 09/28/18 05:00 Hepatitis A IgM Ab Negative (NEGATIVE) 09/25/18 05:45 Hep Bs Antigen Negative (NEGATIVE) 09/25/18 05:45 Hep B Core IgM Ab Negative (NEGATIVE) 09/25/18 05:45 Hepatitis C Antibody Reactive (NEGATIVE) 09/25/18 05:45 Hepatitis C RNA <15 not detected IU/mL (Not Detected) 09/27/18 14:18 HCV RNA Quant (PCR) <1.18 not detected Log IU/mL (Not Detected) 09/27/18 14:18 HIV-1 RNA Qnt (RT-PCR) <1.30 not detected (Not Detected) 09/25/18 05:45 N.gonorrhoeae RNA (TMA) Not detected (Not Detected) 09/28/18 05:00 - Hospital Course Hospital Course: 48 yo male patient admitted with acute epididymitis. Patient has h/o HIV adherent with medications and hepatitis C. Urology and ID consulted improved with IV abx patient was discharged in stable condition. Discharge Exam - Head Exam Head Exam: ATRAUMATIC, NORMAL INSPECTION - Eye Exam Eye Exam: Normal appearance - Respiratory Exam Respiratory Exam: NORMAL BREATHING PATTERN - Cardiovascular Exam Cardiovascular Exam: +S1, +S2 - Neurological Exam Neurological exam: Alert, Oriented x3 - Psychiatric Exam Psychiatric exam: Normal Affect, Normal Mood - Skin Skin Exam: Normal Color, Warm Discharge Plan - Discharge Medications Prescriptions: Ciprofloxacin HCl [Cipro] 500 mg PO BID #20 tab Ibuprofen [Motrin] 600 mg PO Q6 PRN #30 tab PRN Reason: Pain, Moderate (4-7) - Follow Up Plan Condition: STABLE Disposition: HOME/ ROUTINE Instructions: Epididymitis (DC), Epididymo-orchitis (DC) Additional Instructions: hacer tima con bangura primario dentro 1 semana Referrals: Denise Escobar MD [Medical Doctor] - Truong Pierre MD [Staff Provider] - Brendon Mora MD [Staff Provider] -
== END 2018-09-28 11:30 | disposition home or self-care (01) | DRG 728 ==
LOC: H.ER 09:38 → H.ERHOLD 14:37 → H.MEDSURG1 15:55
PROVIDERS: ADMIT Family Medicine; ATTEND Family Medicine
DX: N45.3 Epididymo-orchitis (principal); E78.00 Pure hypercholesterolemia, unspecified; E78.5 Hyperlipidemia, unspecified; B18.2 Chronic viral hepatitis C; N43.3 Hydrocele, unspecified; Z21 Asymptomatic human immunodeficiency virus [HIV] infection status